=== PATIENT | male | born 1950 | race Caucasian/White ===

== ENCOUNTER → 2016-12-05 | Outpatient (CLI) | payer OTHER, BC ==
[~2016-12-05] VITALS: Ht 193 cm; Wt 99.8 kg
[~2016-12-05] MED LIST: ALIGN4 MG PO; CALCIUM 600 +1 EAC1 PO; LANTUS SUBQ; LIPITOR 20 MG T20 M1 PO; METHOTREXATE 22.5 MG PO; NOVOLOG FL100 UNIT/M SUBQ; PREDNISONE 20 M20 MG PO; TAZTIA XT300 M1 PO; VENTOLIN HFA 1818 GM INH; VITAMIN C500 M1 PO; XARELTO20 MG PO
--- NOTE | ~2016-12-05 | S ---
[facility] Cristian [place] [address] SURGICAL PATH RPT PROCEDURE Name: JB NELSON Room #: REG [facility] AllyssaShaw#: [id number] Admission: 12/05/16 Date of : 46 Discharge: Report #: [id number] Path Case #: [id number] PATHOLOGY REPORT COLLECTION DATE: 12/05/2016 RECEIVED DATE: 12/05/2016 SUBMITTING PHYS: Dr. Giuseppe Banuelos OTHER PHYS: Dr. Scar Benitez SPECIMEN(S) RECEIVED: A.Polyp at distal transverse colon B.Polyp at 40 cm x2 C.Polyp at 30 cm * * * * * * * * * * * * FINAL DIAGNOSIS: A. "Polyp at distal transverse colon", bopsy: - Tubular adenoma; no high grade dysplasia. B. "Polyp at 40 cm x 2", biopsy: - Colonic mucosa with focal hyperplastic change, consistent with hyperplastic polyp. C. "Polyp at 30 cm", biopsy: - Hyperplastic polyp. (CLW:db; 12/06/2016) PATHOLOGIST: Gertrudis Espitia M.D. REPORT ELECTRONICALLY SIGNED BY: Gertrudis Espitia M.D. DATE/TIME: 12/06/2016 22:01 * * * * * * * * * * * * GROSS PATHOLOGY: A. Received in formalin labeled "Jb Nelson, polyp at distal transverse colon," is a segment of meyer soft tissue measuring 0.4 cm in maximum dimension. The specimen is submitted entirely in cassette A1. B. Received in formalin labeled "Jb Nelson, polyp at 40 cm," are 2 segments of meyer soft tissue measuring 0.6 x 0.2 x 0.3 cm in aggregate dimensions and ranging from 0.2 to 0.5 cm in maximum dimension. The specimen is submitted entirely in cassette B1. C. Received in formalin labeled "Jb Nelson, polyp at 30 cm," is a segment of meyer soft tissue measuring 0.3 cm in maximum dimension. The specimen is submitted entirely in cassette C1. (TSD; 12/05/2016) CLINICAL HISTORY: [address] [address] SURGICAL PATH RPT PROCEDURE Name: JB NELSON Room #: REG [facility] Antonio#: [id number] Admission: 12/05/16 Date of : 46 Discharge: Report #: [id number] Path Case #: [id number] Pre-OP DX: Hx polyps Post-OP DX: Diverticulosis, polyps INITIAL CPT CODE(S): A; 95873 B; 49899 C; 68644 Professional services performed by [facility] at [address] , [place] [address] Technical services performed by [facility] at [address] [place] [address], [facility] [address] [address]. [facility] [address] [place] [address] PHONE: [phone] DIRECTOR: Eder Curiel M.D. * * * END OF REPORT * * *
--- NOTE | ~2016-12-05 | EKG ---
[address] [address] ELECTROCARDIOGRAM REPORT Name: JB NELSON Room #: REG [facility]#: [id number] Admission: 12/05/16 Attend Phys: Giuseppe Banuelos MD Discharge: Date of : 46 Report #: [id number] THIS REPORT FOR: //name// [facility] Test Date: 2016-12-05 Test Time: 07:59:38 Pat Name: JB NELSON Department: Room: Gender: M [employer] Supervisor: PILO : 1950 Requested By: Giuseppe Banuelos Order Number: [id number] MD: Giovanni Taylor Measurements Intervals [place] Rate: 95 P: AL: QRS: 61 QRSD: 89 T: 60 QT: 386 QTc: 486 Interpretive Statements Atrial fibrillation Borderline prolonged QT interval No previous ECG available for comparison Electronically Signed On 12-06-2016 8:47:50 CDT by Giovanni Taylor [email or web address] <ELECTRONICALLY SIGNED> By: Goivanni Taylor MD, [facility] 12/06/16 0847 0759 0759 Giovanni Taylor MD, FAC /EPI
--- NOTE | ~2016-12-05 | P ---
[facility] [place] [address] PROCEDURE REPORT Name: JB NELSON Room #: REG [facility]#: [id number] Admission: 12/05/16 Attend Phys: Giuseppe Banuelos MD Discharge: Date of : 46 Report #: [id number] THIS REPORT FOR: //name// CC: Scar Benitez MD [facility] physician/PCP Giuseppe Banuelos BRIEF HISTORY: The patient is a 66-year-old male with previous lifetime adenoma count of . PREOPERATIVE DIAGNOSIS: High risk surveillance colonoscopy due to high number of colon adenomas. POSTOPERATIVE DIAGNOSES: 1. Multiple colon polyps. 2. Diverticulosis coli. MEDICATIONS: Deep sedation with propofol per anesthesia. SPECIMENS: 1. Polyp, distal transverse colon. 2. Polyps times 2 at 40 cm. 3. Polyp at 30 cm. ESTIMATED BLOOD LOSS: 3 mL. PROCEDURE: Colonoscopy to cecum and terminal ileum with biopsy. FINDINGS: Prior to propofol sedation, procedure of colonoscopy was discussed with the patient as well as potential risks, benefits, and complications. He indicates he understands and desires to proceed. With the patient in left lateral decubitus position, digital examination was completed, which revealed no abnormalities. Subsequently, the [employer] video colonoscope was introduced into the rectum, advanced under direct vision to the cecum. This was done with minimal difficulty. The cecum was identified by the ileocecal valve and the appendiceal orifice. I was able to visualize the distal segment of terminal ileum, which was inspected and noted to be unremarkable. At that point, the scope was slowly withdrawn and careful circumferential views were obtained including retroflexing the scope in the ascending colon. Upon slow withdrawal of the scope, the prep was good. The mucosa was within normal limits, normal vascular pattern, normal light reflex. As we withdrew the scope, he was noted to have a lipomatous ileocecal valve. He was also noted to have a few scattered diverticula in the proximal colon without endoscopic evidence of diverticulitis. As we withdrew the scope, he had normal mucosa. No abnormalities were noted until the distal transverse colon was reached, at which point a diminutive polyp was seen and removed by biopsy. Scope was further [facility] [address] [place] [address] PROCEDURE REPORT Name: OMARJB Natalio Room #: REG [facility] Allyssa.#: [id number] Admission: 12/05/16 Attend Phys: Giuseppe Banuelos MD Discharge: Date of : 46 Report #: [id number] withdrawn and 2 diminutive polyps were seen and removed by biopsy from the proximal sigmoid colon. These were at 40 cm. Also, in the sigmoid colon at 30 cm, another diminutive polyp seen and removed by biopsy. A few scattered diverticula were seen in the sigmoid colon without endoscopic evidence of diverticulitis. The scope was withdrawn in the rectum. Upon retroflexion, no abnormalities were seen. Scope was withdrawn. The patient tolerated the procedure well. CONDITION OF THE PATIENT UPON DISCHARGE: Following procedure, the patient drowsy, aroused, conversant and will be discharged home when fully ambulatory. INSTRUCTIONS TO THE PATIENT AND FAMILY AT THE TIME OF DISCHARGE: The patient with high lifetime colon polyp count. We will follow up on the path, but at this point we would continue with annual colonoscopy due to his high colon polyp count and risk for a more aggressive neoplastic process. Genetic testing has been discussed in the past, although I do not believe he has had pursued it. We will review with him again today the role of genetic testing. He will otherwise follow up with Dr. Scar Benitez. Last colonoscopy was about a year ago. Withdrawal time from the cecum was 17 minutes. <ELECTRONICALLY SIGNED> By: Giuseppe Banuelos MD 12/06/16 1715 0925 1133 Giuseppe Banuelos MD /nt
== END | disposition home or self-care (01) ==
LOC: GI 07:21
DX: Z09 Encounter for follow-up examination after completed treatment for conditions other than malignant neoplasm (principal); D12.3 Benign neoplasm of transverse colon; K63.5 Polyp of colon; K57.30 Diverticulosis of large intestine without perforation or abscess without bleeding; I10 Essential (primary) hypertension; E11.9 Type 2 diabetes mellitus without complications; E78.5 Hyperlipidemia, unspecified; I48.91 Unspecified atrial fibrillation; J45.909 Unspecified asthma, uncomplicated; M06.9 Rheumatoid arthritis, unspecified; Z98.41 Cataract extraction status, right eye; Z98.42 Cataract extraction status, left eye; Z79.4 Long term (current) use of insulin; Z98.890 Other specified postprocedural states; Z79.899 Other long term (current) drug therapy
CPT/HCPCS: 62110; 62900

== ENCOUNTER → 2018-08-27 | Outpatient (CLI) | payer OTHER, BC ==
[~2018-08-27] MED LIST changes: +BASAGLAR K100 UNIT/1 SUBQ; +DULERA 100 MCG/13 GM INH
== END ==
LOC: HYPER 08-06 14:24
DX: T87.89 Other complications of amputation stump (principal); E11.40 Type 2 diabetes mellitus with diabetic neuropathy, unspecified; L89.612 Pressure ulcer of right heel, stage 2; E11.621 Type 2 diabetes mellitus with foot ulcer; L97.411 Non-pressure chronic ulcer of right heel and midfoot limited to breakdown of skin; M21.6X1 Other acquired deformities of right foot; L60.3 Nail dystrophy; E11.69 Type 2 diabetes mellitus with other specified complication; M86.171 Other acute osteomyelitis, right ankle and foot; M19.042 Primary osteoarthritis, left hand; L84 Corns and callosities; I10 Essential (primary) hypertension; E78.5 Hyperlipidemia, unspecified; I48.91 Unspecified atrial fibrillation; R60.0 Localized edema; Z79.01 Long term (current) use of anticoagulants; Z79.4 Long term (current) use of insulin; Z79.52 Long term (current) use of systemic steroids; J45.909 Unspecified asthma, uncomplicated; Y83.5 Amputation of limb(s) as the cause of abnormal reaction of the patient, or of later complication, without mention of misadventure at the time of the procedure

== ENCOUNTER → 2018-09-10 | Outpatient (CLI) | payer OTHER, BC | LOC: HYPER 06:49 | DX: T87.89 Other complications of amputation stump (principal); E11.40 Type 2 diabetes mellitus with diabetic neuropathy, unspecified; L89.612 Pressure ulcer of right heel, stage 2; I10 Essential (primary) hypertension; E11.69 Type 2 diabetes mellitus with other specified complication; M86.171 Other acute osteomyelitis, right ankle and foot; M19.042 Primary osteoarthritis, left hand; L84 Corns and callosities; L60.3 Nail dystrophy; E78.5 Hyperlipidemia, unspecified; I48.91 Unspecified atrial fibrillation; R60.0 Localized edema; M21.6X1 Other acquired deformities of right foot; J45.909 Unspecified asthma, uncomplicated; Z79.01 Long term (current) use of anticoagulants; Z79.4 Long term (current) use of insulin; Z79.52 Long term (current) use of systemic steroids; Y83.8 Other surgical procedures as the cause of abnormal reaction of the patient, or of later complication, without mention of misadventure at the time of the procedure ==

== ENCOUNTER → 2018-09-24 | Outpatient (CLI) | payer OTHER, BC | LOC: HYPER 06:42 | DX: T87.89 Other complications of amputation stump (principal); E11.621 Type 2 diabetes mellitus with foot ulcer; L97.512 Non-pressure chronic ulcer of other part of right foot with fat layer exposed; L84 Corns and callosities; L60.3 Nail dystrophy; E11.69 Type 2 diabetes mellitus with other specified complication; M86.171 Other acute osteomyelitis, right ankle and foot; E11.40 Type 2 diabetes mellitus with diabetic neuropathy, unspecified; E78.5 Hyperlipidemia, unspecified; R60.0 Localized edema; I10 Essential (primary) hypertension; I48.91 Unspecified atrial fibrillation; J45.909 Unspecified asthma, uncomplicated; M21.6X1 Other acquired deformities of right foot; M19.042 Primary osteoarthritis, left hand; Z98.49 Cataract extraction status, unspecified eye; Z79.01 Long term (current) use of anticoagulants; Z79.4 Long term (current) use of insulin; Z79.52 Long term (current) use of systemic steroids; Y83.5 Amputation of limb(s) as the cause of abnormal reaction of the patient, or of later complication, without mention of misadventure at the time of the procedure ==

== ENCOUNTER → 2018-10-08 | Outpatient (CLI) | payer OTHER, BC | LOC: HYPER 06:31 | DX: T87.89 Other complications of amputation stump (principal); E11.621 Type 2 diabetes mellitus with foot ulcer; L97.512 Non-pressure chronic ulcer of other part of right foot with fat layer exposed; E11.40 Type 2 diabetes mellitus with diabetic neuropathy, unspecified; M21.6X1 Other acquired deformities of right foot; L60.3 Nail dystrophy; I10 Essential (primary) hypertension; E11.69 Type 2 diabetes mellitus with other specified complication; L84 Corns and callosities; E78.5 Hyperlipidemia, unspecified; I48.91 Unspecified atrial fibrillation; M86.171 Other acute osteomyelitis, right ankle and foot; M19.042 Primary osteoarthritis, left hand; R60.0 Localized edema; J45.909 Unspecified asthma, uncomplicated; Z79.01 Long term (current) use of anticoagulants; Z79.4 Long term (current) use of insulin; Z79.52 Long term (current) use of systemic steroids; Y83.5 Amputation of limb(s) as the cause of abnormal reaction of the patient, or of later complication, without mention of misadventure at the time of the procedure ==

== ENCOUNTER → 2018-10-29 | Outpatient (CLI) | payer OTHER, BC | LOC: HYPER 06:56 | DX: T87.89 Other complications of amputation stump (principal); E11.621 Type 2 diabetes mellitus with foot ulcer; L97.512 Non-pressure chronic ulcer of other part of right foot with fat layer exposed; L84 Corns and callosities; L60.3 Nail dystrophy; E11.69 Type 2 diabetes mellitus with other specified complication; M86.171 Other acute osteomyelitis, right ankle and foot; E11.40 Type 2 diabetes mellitus with diabetic neuropathy, unspecified; E78.5 Hyperlipidemia, unspecified; M21.6X1 Other acquired deformities of right foot; M19.042 Primary osteoarthritis, left hand; R60.0 Localized edema; I10 Essential (primary) hypertension; I48.91 Unspecified atrial fibrillation; J45.909 Unspecified asthma, uncomplicated; Z98.49 Cataract extraction status, unspecified eye; Z79.01 Long term (current) use of anticoagulants; Z79.4 Long term (current) use of insulin; Z79.52 Long term (current) use of systemic steroids; Y83.5 Amputation of limb(s) as the cause of abnormal reaction of the patient, or of later complication, without mention of misadventure at the time of the procedure ==

== ENCOUNTER → 2018-12-16 | Outpatient (CLI) | payer OTHER, BC | LOC: HYPER 07:06 | DX: L97.522 Non-pressure chronic ulcer of other part of left foot with fat layer exposed (principal); E11.40 Type 2 diabetes mellitus with diabetic neuropathy, unspecified; L84 Corns and callosities; L60.3 Nail dystrophy; M21.6X1 Other acquired deformities of right foot; M86.171 Other acute osteomyelitis, right ankle and foot; M19.042 Primary osteoarthritis, left hand; R60.0 Localized edema; E78.5 Hyperlipidemia, unspecified; I10 Essential (primary) hypertension; I48.91 Unspecified atrial fibrillation; J45.909 Unspecified asthma, uncomplicated; Z98.49 Cataract extraction status, unspecified eye; Z79.01 Long term (current) use of anticoagulants; Z79.4 Long term (current) use of insulin; Z79.52 Long term (current) use of systemic steroids ==

== ENCOUNTER → 2018-12-24 | Outpatient (CLI) | payer OTHER, BC ==
[~2018-12-24] VITALS: Ht 193 cm; Wt 95.3 kg
[~2018-12-24] MED LIST changes: +DOXYCYCLINE 10100 MG PO; +FLOMAX0.4 MG PO; +PREDNISONE 10 M10 MG PO; +SYMBICORT160 MCG/4. INH
--- NOTE | 2018-12-25 16:06 | PATH ---
[facility] [address] [place] [address] PATHOLOGY RPT PROCEDURE Name: JB NELSON Natalio Room #: REG RONAL[facility] Alvarez#: [id number] Admission: 12/24/18 Date of : 46 Discharge: Report #: [id number] Path Case #: [id number] [facility] Accession Number: [id number] . 01 Material submitted: . PART A: colon - POLYP AT 60CM PART B: colon - POLYP AT 40CM . 01 Clinical history: . Pre-op diagnosis: Follow-up multiple polyps Post-op diagnosis: Colon polyps, hemorrhoids . 02 Diagnosis: A. Colon, 60 cm, biopsy: - Hyperplastic polyp. . B. Colon, 40 cm, biopsy: - Hyperplastic polyp. (SKM:lynette; 12/25/2018) S 12/25/2018 1325 Local . 02 Electronically signed: . Rik Williamson MD, Pathologist NPI- [id number] . 01 Gross description: . A. The specimen is received in formalin, labeled "Jb Nelson, polyp at 60 cm". Received is a segment of pale meyer soft tissue measuring 0.5 cm in maximum dimensions. The specimen is submitted entirely in cassette A1. . B. The specimen is received in formalin, labeled "Jb Nelson, polyp at 40 cm". Received is a segment of pale meyer soft tissue measuring 0.6 cm in maximum dimensions. The specimen is submitted entirely in cassette B1. (CAA; 12/24/2018) QAC/QAC 12/24/2018 1627 Local . 02 Pathologist provided ICD-10: K63.5 . 02 CPT . 810582, 015369 Specimen Comment: A courtesy copy of this report has been sent to Specimen Comment: [phone], . Specimen Comment: Report sent to / DR RESENDIZ Performed at: [address] [id number] [place] [address] PATHOLOGY RPT PROCEDURE Name: JB NELSON Room #: REG RON[facility] Alvarez#: [id number] Admission: 12/24/18 Date of : 46 Discharge: Report #: [id number] Path Case #: [id number] MD Aram Lake MD Phone: [phone] Performed at: [address] [id number] MD Swetha Bradford MD Phone: [phone]
--- NOTE | 2018-12-26 11:25 | P ---
[facility] [place] [address] PROCEDURE REPORT Name: JB NELSON Room #: REG [facility]#: [id number] Admission: 12/24/18 Attend Phys: Giuseppe Banuelos MD Discharge: Date of : 46 Report #: [id number] THIS REPORT FOR: //name// CC: Scar Banuelos OUTPATIENT COLONOSCOPY REPORT BRIEF HISTORY: The patient is a 68-year-old male with a history of greater than 14 adenomas lifetime for high-risk screening colonoscopy. PREOPERATIVE DIAGNOSIS: High-risk screening colonoscopy. POSTOPERATIVE DIAGNOSES: 1. Colon polyps. 2. Small internal hemorrhoids. 3. An occasional colonic diverticulum seen. FINDINGS: Prior to propofol sedation, procedure of colonoscopy was discussed with the patient as well as potential risks and its complications. He indicates he understands and desires to proceed. DESCRIPTION OF PROCEDURE: With the patient in left lateral decubitus position, digital examination was completed, which revealed no abnormalities. Subsequently, the Olympus video colonoscope was introduced in the rectum, advanced under direct vision to the cecum. This was done with minimal difficulty. The cecum was identified by the ileocecal valve and the appendiceal orifice. I was able to visualize the distal segment of the terminal ileum, which was inspected and noted to be unremarkable. At that point, the scope was slowly withdrawn and careful circumferential views obtained. The prep was good. The mucosa was within normal limits, normal vascular pattern, normal light reflex. As we withdrew the scope, an occasional diverticulum was seen, but the exam was otherwise unremarkable with normal-appearing mucosa. As we withdrew the scope in the left colon, at 60 cm, a diminutive polyp was seen and removed with the biopsy forceps. Scope was further withdrawn and another diminutive polyp was seen and removed with biopsy forceps at 40 cm. Further withdrawal of the scope did not reveal any additional polyps. The scope was withdrawn in the rectum and no abnormalities were seen. However, upon retroflexion, small internal hemorrhoids were seen. The scope was withdrawn. The patient tolerated the procedure well. CONDITION OF THE PATIENT UPON DISCHARGE: Following procedure, the patient was drowsy, arousable and conversant and will be discharged home when fully ambulatory. INSTRUCTIONS TO THE PATIENT AND FAMILY AT THE TIME OF DISCHARGE: The patient, [address] [address] PROCEDURE REPORT Name: JB NELSON Room #: REG [facility]#: [id number] Admission: 12/24/18 Attend Phys: Giuseppe Banuelos MD Discharge: Date of : 46 Report #: [id number] prior to today's exam, had greater than 14 adenomas lifetime. We will follow up on the pathology of the 2 polyps removed today. He has declined genetic testing in the past. We will have him return in 2 years for a followup colonoscopy. He will otherwise return to the care of Dr. Scar Benitez. Withdrawal time in the cecum was 16 minutes 48 seconds. <ELECTRONICALLY SIGNED> By: Giuseppe Banuelos MD 12/26/18 1125 0807 1215 Giuseppe Banuelos MD /nt
== END | disposition home or self-care (01) ==
LOC: GI 06:36
DX: Z12.11 Encounter for screening for malignant neoplasm of colon (principal); Z86.010 Personal history of colon polyps; K63.5 Polyp of colon; K57.30 Diverticulosis of large intestine without perforation or abscess without bleeding; K64.8 Other hemorrhoids; I10 Essential (primary) hypertension; E78.5 Hyperlipidemia, unspecified; E11.9 Type 2 diabetes mellitus without complications; I48.91 Unspecified atrial fibrillation; Z98.41 Cataract extraction status, right eye; Z98.42 Cataract extraction status, left eye; Z98.890 Other specified postprocedural states; Z79.899 Other long term (current) drug therapy; Z79.4 Long term (current) use of insulin; Z88.0 Allergy status to penicillin
CPT/HCPCS: 62110; 62900

== ENCOUNTER → 2019-01-04 | Outpatient (CLI) | payer OTHER, BC | LOC: HYPER 07:31 | DX: T81.89XD Other complications of procedures, not elsewhere classified, subsequent encounter (principal); E11.621 Type 2 diabetes mellitus with foot ulcer; L97.521 Non-pressure chronic ulcer of other part of left foot limited to breakdown of skin; E11.69 Type 2 diabetes mellitus with other specified complication; M86.171 Other acute osteomyelitis, right ankle and foot; E11.40 Type 2 diabetes mellitus with diabetic neuropathy, unspecified; M21.6X1 Other acquired deformities of right foot; L60.3 Nail dystrophy; E78.5 Hyperlipidemia, unspecified; I48.91 Unspecified atrial fibrillation; I10 Essential (primary) hypertension; M19.042 Primary osteoarthritis, left hand; R60.0 Localized edema; L84 Corns and callosities; J45.909 Unspecified asthma, uncomplicated; Z79.01 Long term (current) use of anticoagulants; Z79.4 Long term (current) use of insulin; Z79.52 Long term (current) use of systemic steroids; Y83.8 Other surgical procedures as the cause of abnormal reaction of the patient, or of later complication, without mention of misadventure at the time of the procedure ==

== ENCOUNTER → 2019-01-19 | Outpatient (CLI) | payer OTHER, BC | LOC: HYPER 10:00 | DX: T81.89XD Other complications of procedures, not elsewhere classified, subsequent encounter (principal); L97.521 Non-pressure chronic ulcer of other part of left foot limited to breakdown of skin; E11.40 Type 2 diabetes mellitus with diabetic neuropathy, unspecified; E11.69 Type 2 diabetes mellitus with other specified complication; M86.171 Other acute osteomyelitis, right ankle and foot; M21.6X1 Other acquired deformities of right foot; L84 Corns and callosities; I10 Essential (primary) hypertension; L60.3 Nail dystrophy; E78.5 Hyperlipidemia, unspecified; I48.91 Unspecified atrial fibrillation; M19.042 Primary osteoarthritis, left hand; R60.0 Localized edema; J45.909 Unspecified asthma, uncomplicated; Z79.01 Long term (current) use of anticoagulants; Z79.4 Long term (current) use of insulin; Z79.52 Long term (current) use of systemic steroids; Y83.8 Other surgical procedures as the cause of abnormal reaction of the patient, or of later complication, without mention of misadventure at the time of the procedure ==

== ENCOUNTER → 2019-02-02 | Outpatient (CLI) | payer OTHER, BC | LOC: HYPER 07:38 | DX: T81.89XD Other complications of procedures, not elsewhere classified, subsequent encounter (principal); E11.621 Type 2 diabetes mellitus with foot ulcer; L97.522 Non-pressure chronic ulcer of other part of left foot with fat layer exposed; E11.69 Type 2 diabetes mellitus with other specified complication; M86.171 Other acute osteomyelitis, right ankle and foot; E11.40 Type 2 diabetes mellitus with diabetic neuropathy, unspecified; M21.6X1 Other acquired deformities of right foot; L60.3 Nail dystrophy; E78.5 Hyperlipidemia, unspecified; I48.91 Unspecified atrial fibrillation; M19.042 Primary osteoarthritis, left hand; R60.0 Localized edema; J45.909 Unspecified asthma, uncomplicated; Z79.01 Long term (current) use of anticoagulants; Z79.4 Long term (current) use of insulin; Z79.52 Long term (current) use of systemic steroids; Y83.8 Other surgical procedures as the cause of abnormal reaction of the patient, or of later complication, without mention of misadventure at the time of the procedure ==

== ENCOUNTER → 2019-03-03 | Outpatient (CLI) | payer OTHER, BC | LOC: HYPER 07:57 | DX: T81.89XD Other complications of procedures, not elsewhere classified, subsequent encounter (principal); E11.621 Type 2 diabetes mellitus with foot ulcer; L97.522 Non-pressure chronic ulcer of other part of left foot with fat layer exposed; E11.69 Type 2 diabetes mellitus with other specified complication; M86.171 Other acute osteomyelitis, right ankle and foot; E11.40 Type 2 diabetes mellitus with diabetic neuropathy, unspecified; L84 Corns and callosities; L60.3 Nail dystrophy; E78.5 Hyperlipidemia, unspecified; I48.91 Unspecified atrial fibrillation; M21.6X1 Other acquired deformities of right foot; M19.042 Primary osteoarthritis, left hand; R60.0 Localized edema; J45.909 Unspecified asthma, uncomplicated; Z79.01 Long term (current) use of anticoagulants; Z79.4 Long term (current) use of insulin; Z79.52 Long term (current) use of systemic steroids; Y83.8 Other surgical procedures as the cause of abnormal reaction of the patient, or of later complication, without mention of misadventure at the time of the procedure ==

== ENCOUNTER → 2019-03-26 | Outpatient (CLI) | payer OTHER, BC | LOC: HYPER 09:22 | DX: T87.89 Other complications of amputation stump (principal); E11.621 Type 2 diabetes mellitus with foot ulcer; L97.522 Non-pressure chronic ulcer of other part of left foot with fat layer exposed; E11.40 Type 2 diabetes mellitus with diabetic neuropathy, unspecified; L84 Corns and callosities; E11.69 Type 2 diabetes mellitus with other specified complication; M86.171 Other acute osteomyelitis, right ankle and foot; M21.6X1 Other acquired deformities of right foot; L60.3 Nail dystrophy; M19.042 Primary osteoarthritis, left hand; Z79.01 Long term (current) use of anticoagulants; Z79.4 Long term (current) use of insulin; Z79.52 Long term (current) use of systemic steroids; I10 Essential (primary) hypertension; E78.5 Hyperlipidemia, unspecified; I48.91 Unspecified atrial fibrillation; J45.909 Unspecified asthma, uncomplicated; Z98.49 Cataract extraction status, unspecified eye; Y83.5 Amputation of limb(s) as the cause of abnormal reaction of the patient, or of later complication, without mention of misadventure at the time of the procedure ==

== ENCOUNTER → 2019-04-08 | Outpatient (CLI) | payer OTHER, BC | LOC: HYPER 09:53 | DX: T81.89XD Other complications of procedures, not elsewhere classified, subsequent encounter (principal); E11.621 Type 2 diabetes mellitus with foot ulcer; L97.522 Non-pressure chronic ulcer of other part of left foot with fat layer exposed; E11.69 Type 2 diabetes mellitus with other specified complication; M86.171 Other acute osteomyelitis, right ankle and foot; J45.909 Unspecified asthma, uncomplicated; I10 Essential (primary) hypertension; E78.5 Hyperlipidemia, unspecified; I48.91 Unspecified atrial fibrillation; Z98.49 Cataract extraction status, unspecified eye; Z79.01 Long term (current) use of anticoagulants; Z79.4 Long term (current) use of insulin; Z89.421 Acquired absence of other right toe(s); Y83.8 Other surgical procedures as the cause of abnormal reaction of the patient, or of later complication, without mention of misadventure at the time of the procedure ==

== ENCOUNTER → 2019-04-20 | Outpatient (CLI) | payer OTHER, BC | LOC: HYPER 08:55 | DX: T87.89 Other complications of amputation stump (principal); E11.621 Type 2 diabetes mellitus with foot ulcer; L97.522 Non-pressure chronic ulcer of other part of left foot with fat layer exposed; E11.40 Type 2 diabetes mellitus with diabetic neuropathy, unspecified; L84 Corns and callosities; L60.3 Nail dystrophy; E11.69 Type 2 diabetes mellitus with other specified complication; M86.171 Other acute osteomyelitis, right ankle and foot; M21.6X1 Other acquired deformities of right foot; M19.042 Primary osteoarthritis, left hand; J45.909 Unspecified asthma, uncomplicated; I10 Essential (primary) hypertension; E78.5 Hyperlipidemia, unspecified; I48.91 Unspecified atrial fibrillation; Z79.01 Long term (current) use of anticoagulants; Z79.4 Long term (current) use of insulin; Z79.52 Long term (current) use of systemic steroids; Z98.49 Cataract extraction status, unspecified eye; Y83.5 Amputation of limb(s) as the cause of abnormal reaction of the patient, or of later complication, without mention of misadventure at the time of the procedure ==

== ENCOUNTER → 2019-04-22 | Outpatient (CLI) | payer OTHER, BC | LOC: HYPER 09:04 | DX: T81.89XD Other complications of procedures, not elsewhere classified, subsequent encounter (principal); E11.621 Type 2 diabetes mellitus with foot ulcer; L97.522 Non-pressure chronic ulcer of other part of left foot with fat layer exposed; S90.822D Blister (nonthermal), left foot, subsequent encounter; L84 Corns and callosities; L60.3 Nail dystrophy; E11.40 Type 2 diabetes mellitus with diabetic neuropathy, unspecified; E78.5 Hyperlipidemia, unspecified; M21.6X1 Other acquired deformities of right foot; R60.0 Localized edema; I10 Essential (primary) hypertension; I48.91 Unspecified atrial fibrillation; J45.909 Unspecified asthma, uncomplicated; M19.042 Primary osteoarthritis, left hand; Z79.01 Long term (current) use of anticoagulants; Z79.4 Long term (current) use of insulin; Z79.52 Long term (current) use of systemic steroids; Z98.49 Cataract extraction status, unspecified eye; Y83.8 Other surgical procedures as the cause of abnormal reaction of the patient, or of later complication, without mention of misadventure at the time of the procedure ==

== ENCOUNTER → 2019-04-29 | Outpatient (CLI) | payer OTHER, BC | LOC: HYPER 09:20 | DX: T87.89 Other complications of amputation stump (principal); E11.621 Type 2 diabetes mellitus with foot ulcer; L97.526 Non-pressure chronic ulcer of other part of left foot with bone involvement without evidence of necrosis; E11.40 Type 2 diabetes mellitus with diabetic neuropathy, unspecified; M21.6X1 Other acquired deformities of right foot; L84 Corns and callosities; L60.3 Nail dystrophy; M19.042 Primary osteoarthritis, left hand; J45.909 Unspecified asthma, uncomplicated; I10 Essential (primary) hypertension; E78.5 Hyperlipidemia, unspecified; I48.91 Unspecified atrial fibrillation; Z79.01 Long term (current) use of anticoagulants; Z79.4 Long term (current) use of insulin; Z79.52 Long term (current) use of systemic steroids; Z98.49 Cataract extraction status, unspecified eye; Y83.5 Amputation of limb(s) as the cause of abnormal reaction of the patient, or of later complication, without mention of misadventure at the time of the procedure ==

== ENCOUNTER → 2019-05-06 | Outpatient (CLI) | payer OTHER, BC | LOC: HYPER 12:15 | DX: T87.89 Other complications of amputation stump (principal); E11.621 Type 2 diabetes mellitus with foot ulcer; L97.522 Non-pressure chronic ulcer of other part of left foot with fat layer exposed; E11.40 Type 2 diabetes mellitus with diabetic neuropathy, unspecified; M21.6X1 Other acquired deformities of right foot; L84 Corns and callosities; I10 Essential (primary) hypertension; E78.5 Hyperlipidemia, unspecified; I48.91 Unspecified atrial fibrillation; J45.909 Unspecified asthma, uncomplicated; Z79.01 Long term (current) use of anticoagulants; Z79.4 Long term (current) use of insulin; Z98.49 Cataract extraction status, unspecified eye; Z79.52 Long term (current) use of systemic steroids; Y83.5 Amputation of limb(s) as the cause of abnormal reaction of the patient, or of later complication, without mention of misadventure at the time of the procedure ==

== ENCOUNTER → 2019-05-13 | Outpatient (CLI) | payer OTHER, BC | LOC: HYPER 09:05 | DX: T81.89XD Other complications of procedures, not elsewhere classified, subsequent encounter (principal); E11.621 Type 2 diabetes mellitus with foot ulcer; L97.522 Non-pressure chronic ulcer of other part of left foot with fat layer exposed; E11.40 Type 2 diabetes mellitus with diabetic neuropathy, unspecified; M21.6X1 Other acquired deformities of right foot; L84 Corns and callosities; L60.3 Nail dystrophy; M19.042 Primary osteoarthritis, left hand; J45.909 Unspecified asthma, uncomplicated; I10 Essential (primary) hypertension; E78.5 Hyperlipidemia, unspecified; I48.91 Unspecified atrial fibrillation; Z79.01 Long term (current) use of anticoagulants; Z79.4 Long term (current) use of insulin; Z79.52 Long term (current) use of systemic steroids; Z98.49 Cataract extraction status, unspecified eye; Y83.8 Other surgical procedures as the cause of abnormal reaction of the patient, or of later complication, without mention of misadventure at the time of the procedure ==

== ENCOUNTER → 2019-05-20 | Outpatient (CLI) | payer OTHER, BC | LOC: HYPER 09:13 | DX: T81.89XD Other complications of procedures, not elsewhere classified, subsequent encounter (principal); E11.621 Type 2 diabetes mellitus with foot ulcer; L97.522 Non-pressure chronic ulcer of other part of left foot with fat layer exposed; E11.40 Type 2 diabetes mellitus with diabetic neuropathy, unspecified; L84 Corns and callosities; M21.6X1 Other acquired deformities of right foot; L60.3 Nail dystrophy; R60.0 Localized edema; M19.042 Primary osteoarthritis, left hand; I10 Essential (primary) hypertension; E78.5 Hyperlipidemia, unspecified; J45.909 Unspecified asthma, uncomplicated; I48.91 Unspecified atrial fibrillation; Z79.01 Long term (current) use of anticoagulants; Z79.4 Long term (current) use of insulin; Z79.52 Long term (current) use of systemic steroids; Y83.8 Other surgical procedures as the cause of abnormal reaction of the patient, or of later complication, without mention of misadventure at the time of the procedure ==

== ENCOUNTER → 2019-05-27 | Outpatient (CLI) | payer OTHER, BC | LOC: HYPER 08:55 | DX: T81.89XD Other complications of procedures, not elsewhere classified, subsequent encounter (principal); E11.621 Type 2 diabetes mellitus with foot ulcer; L97.522 Non-pressure chronic ulcer of other part of left foot with fat layer exposed; E11.40 Type 2 diabetes mellitus with diabetic neuropathy, unspecified; L84 Corns and callosities; M21.6X1 Other acquired deformities of right foot; R60.0 Localized edema; L60.3 Nail dystrophy; M19.042 Primary osteoarthritis, left hand; I10 Essential (primary) hypertension; E78.5 Hyperlipidemia, unspecified; I48.91 Unspecified atrial fibrillation; J45.909 Unspecified asthma, uncomplicated; Z79.01 Long term (current) use of anticoagulants; Z79.4 Long term (current) use of insulin; Z79.52 Long term (current) use of systemic steroids; Z98.49 Cataract extraction status, unspecified eye; Y83.8 Other surgical procedures as the cause of abnormal reaction of the patient, or of later complication, without mention of misadventure at the time of the procedure ==

== ENCOUNTER → 2019-06-02 | Outpatient (CLI) | payer OTHER, BC | LOC: HYPER 09:13 | DX: T81.89XD Other complications of procedures, not elsewhere classified, subsequent encounter (principal); E11.621 Type 2 diabetes mellitus with foot ulcer; L97.526 Non-pressure chronic ulcer of other part of left foot with bone involvement without evidence of necrosis; E11.40 Type 2 diabetes mellitus with diabetic neuropathy, unspecified; L84 Corns and callosities; M21.6X1 Other acquired deformities of right foot; R60.0 Localized edema; L60.3 Nail dystrophy; M19.042 Primary osteoarthritis, left hand; J45.909 Unspecified asthma, uncomplicated; E78.5 Hyperlipidemia, unspecified; I48.91 Unspecified atrial fibrillation; I10 Essential (primary) hypertension; Z79.01 Long term (current) use of anticoagulants; Z79.4 Long term (current) use of insulin; Z79.52 Long term (current) use of systemic steroids; Z98.49 Cataract extraction status, unspecified eye; Y83.8 Other surgical procedures as the cause of abnormal reaction of the patient, or of later complication, without mention of misadventure at the time of the procedure ==

== ENCOUNTER → 2019-06-09 | Outpatient (CLI) | payer OTHER, BC | LOC: HYPER 08:27 | DX: T81.89XD Other complications of procedures, not elsewhere classified, subsequent encounter (principal); E11.621 Type 2 diabetes mellitus with foot ulcer; L97.526 Non-pressure chronic ulcer of other part of left foot with bone involvement without evidence of necrosis; E11.40 Type 2 diabetes mellitus with diabetic neuropathy, unspecified; M21.6X1 Other acquired deformities of right foot; L84 Corns and callosities; R60.0 Localized edema; L60.3 Nail dystrophy; M19.042 Primary osteoarthritis, left hand; J45.909 Unspecified asthma, uncomplicated; I10 Essential (primary) hypertension; E78.5 Hyperlipidemia, unspecified; I48.91 Unspecified atrial fibrillation; Z79.01 Long term (current) use of anticoagulants; Z79.4 Long term (current) use of insulin; Z79.52 Long term (current) use of systemic steroids; Z98.49 Cataract extraction status, unspecified eye; Y83.8 Other surgical procedures as the cause of abnormal reaction of the patient, or of later complication, without mention of misadventure at the time of the procedure ==

== ENCOUNTER 2019-06-18 08:30 | Day surgery (SDC) | payer OTHER, BC ==
[~2019-06-18] VITALS: Ht 193 cm; Wt 99.8 kg
[~2019-06-18 08:30] MED LIST changes: +LOPRESSOR25 PO
[2019-06-18 09:16] LABS: HEMOGLOBIN 15.1 gm/dL (14.0-18.0)
[2019-06-18 09:22] LABS: CALCIUM 8.9 mg/dL (8.5-10.1); CREATININE 1.3 mg/dL (0.7-1.3); POTASSIUM 4.3 mmol/L (3.5-5.1)
[2019-06-18 09:28] LABS: ALBUMIN 3.8 g/dL (3.4-5.0); TOTAL BILIRUBIN 0.9 mg/dL (<0.1-1.0); TOTAL PROTEIN 6.4 g/dL (6.4-8.2)
[2019-06-18 09:38] VITALS: BP 126/75
[2019-06-18 11:35] VITALS: BP 126/75
--- NOTE | 2019-06-22 15:08 | PATH ---
[facility] [address] [place] [address] PATHOLOGY RPT PROCEDURE Name: JB NELSON Room #: [facility]#: [id number] Admission: 06/18/19 Date of : 46 Discharge: 06/18/19 Report #: [id number] Path Case #: [id number] [facility] Accession Number: [id number] . 01 Material submitted: . toe - LEFT FIFTH TOE. Modifiers: left, fifth . 01 Clinical history: . Gannon grade 3 diabetic foot ulcer fifth toe; osteomyelitis left fifth toe . 02 Diagnosis: Toe, left fifth toe, amputation: - Skin and subcutaneous tissue showing ulceration along with marked acute inflammation extending into underlying bone associated with acute osteomyelitis. - Bone margin viable showing no evidence of acute inflammation. (IUV:lynette; 06/22/2019) QMS 06/22/2019 1322 Local . 02 Electronically signed: . Swetha Bradford MD, Pathologist NPI- [id number] . 01 Gross description: . The specimen is received in formalin, labeled "Jb Nelson, left fifth toe". Received is an amputated digit measuring 4.2 x 2.2 x 2.0 cm in greatest dimensions. The bone margin is jagged in appearance. The bone and soft tissue margins are inked black. The nail is present displaying a light meyer and thickened appearance. Near the proximal skin margin, there is a well-circumscribed, irregular in contour and light meyer lesion measuring 1.7 x 1.6 cm, which is 0.3 cm from the closest skin margin. A full length longitudinal cross section is submitted from proximal to distal aspects in cassettes A1 and A2, following decal six. . Also received within the specimen container is an additional segment of bone displaying one smooth, convex disarticulated margin and one jagged margin measuring 1.5 x 1.4 x 1.2 cm in greatest dimensions. The disarticulated margin is inked black. A full thickness cross-section is submitted in cassette A3, following decalcification. (CAA; 06/21/2019) QAC/QAC 06/21/2019 1256 Local . 02 Pathologist provided ICD-10: M86.171 . 02 CPT . 863718, [id number] [address] [address] PATHOLOGY RPT PROCEDURE Name: JB NELSON [facility] [id number] Admission: 06/18/19 Date of : 46 Discharge: 06/18/19 Report #: [id number] Path Case #: [id number] Specimen Comment: A courtesy copy of this report has been sent to [phone] Specimen Comment: Report sent to / DR RESENDIZ Performed at: [address], [place], [place] [id number] MD Aram Lake MD Phone: [phone] Performed at: [address] [id number] MD Swetha Bradford MD Phone: [phone]
== END 2019-06-18 12:05 | disposition home or self-care (01) ==
LOC: OR 08:30 → TBA 08:40 → OR 10:14
PROVIDERS: Podiatrist Foot & Ankle Surgery
DX: E11.621 Type 2 diabetes mellitus with foot ulcer (principal); L97.521 Non-pressure chronic ulcer of other part of left foot limited to breakdown of skin; M86.171 Other acute osteomyelitis, right ankle and foot; I10 Essential (primary) hypertension; E78.5 Hyperlipidemia, unspecified; E11.69 Type 2 diabetes mellitus with other specified complication; M86.9 Osteomyelitis, unspecified; J45.909 Unspecified asthma, uncomplicated; I48.91 Unspecified atrial fibrillation; Z98.890 Other specified postprocedural states; Z79.899 Other long term (current) drug therapy; Z88.0 Allergy status to penicillin; Z98.42 Cataract extraction status, left eye; Z79.4 Long term (current) use of insulin; Z98.41 Cataract extraction status, right eye; Z79.1 Long term (current) use of non-steroidal anti-inflammatories (NSAID)
CPT/HCPCS: 50010; 50101; 50386; 56527; 57091; 62110; 62850; 70005

== ENCOUNTER 2019-12-02 13:41 | Inpatient (IN) | payer OTHER, BC ==
[~2019-12-02] VITALS: Ht 193 cm; Wt 98.0 kg
--- NOTE | ~2019-12-02 | HC ---
[facility] [place] [address] CONSULTATION Name: JB NELSON Room #: 453-P ADM IN M.R.#: [id number] Admission: 12/02/19 Attend Phys: Clifton Marcos MD Discharge: Date of : 46 Report #: [id number] THIS REPORT FOR: cc: Scar Benitez MD, David A. MD McKittrick, Richard James MD ~ CC: Scar Marcos DATE OF SERVICE: 12/03/2019 REQUESTING PHYSICIAN: Dr. Clifton Marcos. REASON FOR CONSULTATION: Thrombocytopenia. OTHER PHYSICIANS: Includin. Dr. Antoine Snow. 2. Dr. Scar Benitez. 3. Dr. Jackson in Cardiology. 4. Dr. Usman Pruett. 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 He came to the ER yesterday and his platelets were 70,000, and he reports no prior knowledge. Fortunately, Dr. Antoine Snow who happened to be in the room and I was unable to look up the labs from last February and his platelet count was 80,000. The patient does not appear to have any knowledge of low platelets. We will check with Dr. Scar Benitez for old records. At the same time, his hemoglobin was 14.5, normal and his white count is 8.5 with a normal differential. MCV is 92.8. TSH recently 0.858, B12 is 203, which was the low end of normal. BUN and creatinine were 21.1 respectively. Liver functions normal. The patient denies any unusual ecchymosis or bleeding other than related to Xarelto for his atrial fibrillation. He was not aware of any blood disorders in either himself personally or his family. REVIEW OF SYSTEMS: The patient denies fevers, chills, nausea, or vomiting. He does have some ecchymosis related to the Xarelto. Has had a number of foot surgeries related to diabetic foot ulcer complications. 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 Nonsmoker, nondrinker, no street drugs. 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 PAST MEDICAL HISTORY: Past history is notable for diabetes type 2, hypertension, hyperlipidemia, right inguinal hernia repair, asthma, [place] [address] CONSULTATION Name: JB NELSON Room #: 453-P [facility]#: [id number] Admission: 12/02/19 Attend Phys: Clifton Marcos MD Discharge: Date of : 46 Report #: [id number] in the past, AFib, possible TIA in 2011, right cochlear implant in the past. Recent fluid retention difficulties and begun on midodrine per the patient, though it is not mentioned on his medication list. FAMILY HISTORY: Father and mother both had diabetes. One sister alive and well, one daughter obese, but alive and well. PHYSICAL EXAMINATION: GENERAL: The patient appears his stated age. He is quite hard of hearing in a mask that he was wearing and does not seem to help this very much as you would expect. VITAL SIGNS: Height is 6 feet 4 inch, 182.9 cm, weight 218 pounds, 98.9 kilograms. Blood pressure 118/67, respirations 18, O2 sat 97%, pulse 84, temperature 98.1. HEENT: Face is symmetrical. LUNGS: Breathing is symmetrical and unlabored without rhonchi, rales, stridor or wheezes. HEART: Appears regular rate, though he realizes he does have underlying AFib. LYMPHATICS: No enlarged lymph nodes in the supraclavicular, cervical, axillary or inguinal region. ABDOMEN: Mildly obese. No hepatosplenomegaly. EXTREMITIES: Without clubbing or cyanosis. He does have some ecchymosis. He did not do a digit assessment to see which ones he is missing, but he has had known history. LABORATORY RESULTS: Here notable for a BUN of 19, creatinine 0.9. Liver functions normal. Albumin 3.5, normal. White count 8.8, hemoglobin 14.4, MCV 93.2, platelets today 70,000. Differential normal. TSH 0.858. Vitamin B12 is 230. MEDICATIONS: At this time in the hospital currently include prednisone 10 with breakfast, vancomycin 1 gram q.8 hours, insulin on a sliding scale, metoprolol 12.5 b.i.d., tamsulosin 0.4 mg at bedtime, insulin 15 units at bedtime, calcium carbonate 1 tab b.i.d., atorvastatin calcium 20 mg at bedtime, IV fluids, budesonide 0.5 mg respiratory therapy b.i.d., MiraLax 17 grams daily p.r.n. ASSESSMENT AND PLAN: 1. Thrombocytopenia, may be chronic in nature given history and documentation of platelets of 80,000 a year ago. We will check with Dr. Scar Benitez. Also, note that B12 was the low end of normal. We will check methylmalonic acid level, also folate, also peripheral smear. Main thing will be getting old records from Dr. Benitez who we have seen for a number of years. On the differential would also include possible imaging of the liver, but this is chronic in nature. It is probably more chronic idiopathic thrombocytopenic purpura than liver disease. 2. Possible osteomyelitis and foot ulcers. Defer to other antibiotics and [facility] [address] [place] [address] CONSULTATION Name: JB NELSON Room #: 453-P ADM IN M.R.#: [id number] Admission: 12/02/19 Attend Phys: Clifton Marcos MD Discharge: Date of : 46 Report #: [id number] whether resection or removal of osteomyelitic or infected bone is necessary. 3. Diabetes, insulin per others. 4. Hyperlipidemia, statins per others. 5. Cardiac issues including atrial fibrillation. Metoprolol and Xarelto to others. Would feel it is comfortable to restart the Xarelto given the chronicity of this. 6. Bladder/prostate issues. Continues tamsulosin. We will be available and we will follow. By: 0800 09 Jordy Lorenzo MD /nt
[2019-12-02 13:43] VITALS: BP 133/90
[2019-12-02 15:16] LABS: ABSOLUTE NEUTROPHILS 6.8 thou/uL (1.4-8.2); BASOPHILS 0.8 % (0.0-2.0); EOSINOPHILS 1.4 % (0.0-3.0); HEMATOCRIT 43.8 % (42.0-52.0); HEMOGLOBIN 14.5 gm/dL (14.0-18.0); MCH 30.8 pg (26.0-34.0); MCHC 33.2 g/dL (28.0-37.0); MCV 92.8 fL (80.0-100.0); PLATELET COUNT 67 thou/uL (150-400); POLYS 79.8 % (36.0-66.0); RBC 4.72 mil/uL (4.50-6.00); RDW 14.2 % (10.5-14.5); WBC 8.5 thou/uL (4.0-11.0)
[2019-12-02 15:28] LABS: CALCIUM 8.5 mg/dL (8.5-10.1); CREATININE 1.1 mg/dL (0.7-1.3); POTASSIUM 4.8 mmol/L (3.5-5.1)
[2019-12-02 15:35] LABS: ALBUMIN 3.4 g/dL (3.4-5.0); DIRECT BILIRUBIN 0.2 mg/dL (<0.1-0.2); TOTAL BILIRUBIN 0.6 mg/dL (0.2-1.0); TOTAL PROTEIN 6.8 g/dL (6.4-8.2)
[2019-12-02 17:52] VITALS: BP 124/60
[2019-12-02 18:00] VITALS: BP 146/88
[2019-12-02 18:24] VITALS: BP 148/95
[2019-12-02 19:02] LABS: ALBUMIN 3.5 g/dL (3.4-5.0); TOTAL PROTEIN 6.4 g/dL (6.4-8.2)
[2019-12-02 19:27] LABS: TSH 0.858 uIU/mL (0.358-3.740)
--- NOTE | 2019-12-02 19:50 | NUR ---
CALL TO LAB TO VERIFY INHOUSE COVID PCR SWAB HAS BEEN RECEIVED, IT IS COMPLETED PER LAB
[2019-12-03 04:28] VITALS: BP 118/67
[2019-12-03 05:37] LABS: HEMATOCRIT 43.6 % (42.0-52.0); HEMOGLOBIN 14.4 gm/dL (14.0-18.0); MCH 30.9 pg (26.0-34.0); MCHC 33.1 g/dL (28.0-37.0); MCV 93.2 fL (80.0-100.0); RBC 4.68 mil/uL (4.50-6.00); RDW 14.2 % (10.5-14.5); WBC 8.8 thou/uL (4.0-11.0)
[2019-12-03 05:57] LABS: CALCIUM 8.2 mg/dL (8.5-10.1); CREATININE 0.9 mg/dL (0.7-1.3); MAGNESIUM 2.3 mg/dL (1.8-2.4)
[2019-12-03 06:34] LABS: POTASSIUM 3.7 mmol/L (3.5-5.1)
[2019-12-03 07:57] VITALS: BP 119/55
--- NOTE | 2019-12-03 07:59 | NUR ---
PT'S PCP NOTIFIED OF ADMISSION PER PT'S REQUEST.
[2019-12-03 08:27] LABS: % SATURATION 29 % (20-39); IRON 73 ug/dL (65-175); TIBC 250 ug/dL (250-450)
[2019-12-03 08:35] LABS: FOLIC ACID 18.1 ng/mL (8.6-58.9)
--- NOTE | 2019-12-03 08:38 | NUR ---
ADMIT PT ADMITTED TO ROOM 453 VIA ED FOR OSTEOMYELITIS OF RIGHT SECOND TOE. PICTURE OF WOUND OBTAINED, IVF'S INITIATED ACCUCHECKS AND SCHEDULED MEDICATIONS ADMINISTERED ORDERED, PT DENIES PAIN ADMISSION DOCUMENTED, CONSULTS CALLED AND PCP NOTIFIED OF ADMISSION. PT UP AD NELY AFTER OBSERVATION NOTED TO BE STEADY AND AGILE. IVF'S AND DRESSING COMPLETED CONTINUE POC.
--- NOTE | 2019-12-03 09:01 | EKG ---
[facility] [place] [address] ELECTROCARDIOGRAM REPORT Name: JB NELSON Room #: 453- ADM IN M.R.#: [id number] Admission: 12/02/19 Attend Phys: Clifton Marcos MD Discharge: Date of : 46 Report #: [id number] THIS REPORT FOR: cc: Scar Benitez MD, David A. MD Lundgren,Giovanni Lira MD [facility] ~ THIS REPORT FOR: //name// [facility] Test Date: 2019-12-02 Test Time: 15:39:36 Pat Name: JB NELSON Department: Room: [facility] Gender: M Science Manager: kf : 1950 Requested By: Royce Childers Order Number: [id number] MD: Giovanni Taylor Measurements Intervals [place] Rate: 72 P: NM: QRS: 65 QRSD: 90 T: 33 QT: 439 QTc: 481 Interpretive Statements Atrial fibrillation Borderline T wave abnormalities Borderline prolonged QT interval Compared to ECG 12/05/2016 07:59:38 T-wave abnormality now present Electronically Signed On 12-03-2019 9:00:55 CDT by Giovanni Taylor [email or web address] <ELECTRONICALLY SIGNED> By: Giovanni Taylor MD, [facility] 12/03/1902 1539 1539 Giovanni Taylor MD, [facility] /EPI
--- NOTE | 2019-12-03 10:30 | NUR ---
Nutrition: Assessed due to identification of infection/wound. Pt here w/ R second toe osteomyelitis. Hx includes DM II, chronic immunosuppression w/ steroids due to autoimmune disorder, HTN, a fib, and s/p R great toe and L fifth toe amputation over the last 2 yrs. Visited at bedside. Pt is on a regular diet and reports a great appetite. Feels his eating/appetite are exactly at baseline. No nutrition concerns. He drinks 1 Premier protein drink/day at home which contains 30 g protein. His weight has been stable at 220# for 2 yrs since 2018. 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 Identified alternative protein besides meat. Also encouraged being mindful of carbs and BGs to minimize delayed healing. Low nutrition risk given excellent nutrition intake and education complete.
--- NOTE | 2019-12-03 13:40 | NUR ---
PT ADMITTED RELATED TO PRE-OP LEFT 2ND TOE AMPUTATION W/OSTEOMYELITIS. CM REVIEWED CHART AND SPOKE WITH CARE TEAM. CM CALLED AND SPOKE WITH PT OVER THE PHONE THIS DAY. PT APPEARED TO BE A&O X4. CM ROLE INTRODUCED. PT INDICATED HE LIVES IN A HOUSE WITH HIS SPOUSE WITH 2 STEPS TO ENTER AND A FULL FLIGHT TO BASEMENT. 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 PT INDICATED HE HAS A FWW FROM PREVIOUS AMPUTATION BUT THAT HE HADN'T BEEN USING IT ORACLE SPECIALIST. 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 PT INDICATED THAT HE THINKS HE WOULD BE FINE TO RETURN HOME WITH NO NEEDS FOLLOWING SURGERY TOMORROW. SHOULD PT NEED HH SERVICES HE DIDN'T INDICATE A PREFERENCE REFERRAL COULD BE SENT TO call . CM TO FOLLOW INDICATED WITH DC PLANNING.
[2019-12-03 15:33] VITALS: BP 121/60
[2019-12-03 19:16] VITALS: BP 111/62
--- NOTE | 2019-12-03 19:44 | NUR ---
ASSUMED PT CARE THIS AM. PT A&OX4, AND IS CONTINENT OF BOWEL AND BLADDER. PATIENT IS ON TELEMETRY AND HAS BEEN AFIB. PATIENT IS RECEIVING VANCOMYCIN, AND DOSING WAS ADJUSTED NEEDED FOR CRITICAL TROUGH LEVEL. PATIENT'S RIGHT SECOND TOE HAS AN ULCER AND PT WILL HAVE SURGERY ON 12/03 FOR THE TOE. PATIENT RESPONDED WELL TO ALL MEDICATIONS GIVEN. BLOOD SUGARS WERE TREATED WITH INSULIN NEEDED, AND PATIENT HAD NO FURTHER COMPLAINTS.
[2019-12-04 05:06] LABS: CALCIUM 8.7 mg/dL (8.5-10.1); CREATININE 1.2 mg/dL (0.7-1.3); POTASSIUM 4.4 mmol/L (3.5-5.1)
[2019-12-04 05:21] LABS: MAGNESIUM 2.2 mg/dL (1.8-2.4)
[2019-12-04 07:53] VITALS: BP 117/67
[2019-12-04 11:00] VITALS: BP 111/80
[2019-12-04 11:15] VITALS: BP 142/80
[2019-12-04 11:30] VITALS: BP 146/75
[2019-12-04] MEDS ORDERED: DOXYCYCLINE 10100 MG PO (16:01)
[2019-12-04 16:14] VITALS: BP 146/75
--- NOTE | 2019-12-04 17:02 | NUR ---
Assumed pt care this am received NPO went for procedure this am.ON telemetry running on Afib. No pain has been verbalized, dressing clean dry and intact. diet and medications are tolerated well. POC followed with no signs or verbalizations of distress. Pt got upset since DC was delayed even after unit secritary had called and informed that pt was wanting to go AMA d/t to the delay in dc. Nurse explained the process and was able to calm the pt down. DC instructions given to the pt, prescriptions were sent to the pharmacy informed spuses as well. Pt is now dc picked up by the at the ED. IV removed.
== END 2019-12-04 17:33 | disposition home or self-care (01) | DRG 617 ==
LOC: ER 13:41 → 4W 17:21 → EROBS 17:21 → 4W 18:00
PROVIDERS: Internal Medicine Hematology & Oncology; Nurse Practitioner; ADMIT Internal Medicine; ATTEND Internal Medicine
PROC: 0Y6R0Z2 Detachment at Right 2nd Toe, Mid, Open Approach (ICD-10-PCS; principal; 2019-12-04)
DX: E11.69 Type 2 diabetes mellitus with other specified complication (principal); M86.171 Other acute osteomyelitis, right ankle and foot; I48.91 Unspecified atrial fibrillation; I10 Essential (primary) hypertension; E78.5 Hyperlipidemia, unspecified; J45.909 Unspecified asthma, uncomplicated; D69.6 Thrombocytopenia, unspecified; E11.621 Type 2 diabetes mellitus with foot ulcer; L97.519 Non-pressure chronic ulcer of other part of right foot with unspecified severity; E53.8 Deficiency of other specified B group vitamins; G47.00 Insomnia, unspecified; N40.0 Benign prostatic hyperplasia without lower urinary tract symptoms; D89.89 Other specified disorders involving the immune mechanism, not elsewhere classified; B96.89 Other specified bacterial agents as the cause of diseases classified elsewhere; Z20.828 Contact with and (suspected) exposure to other viral communicable diseases; Z98.42 Cataract extraction status, left eye; Z98.41 Cataract extraction status, right eye; Z89.411 Acquired absence of right great toe; Z79.899 Other long term (current) drug therapy; Z79.4 Long term (current) use of insulin; Z88.0 Allergy status to penicillin; Z89.422 Acquired absence of other left toe(s)
CPT/HCPCS: 10045; 50101; 50386; 56527; 57091; 62110; 62850; 70005